=== PATIENT | male | born 1945 | race Caucasian/White ===

== ENCOUNTER 2020-07-10 07:09 | Outpatient (CLI) | payer MEDICARE ==
[~2020-07-10 07:09] MED LIST: ABIR250T PO; ASCO100018 PO; CALC250T PO; CHOL200024 PO; CHOL200074 PO; CHON250C PO; DEGA80VI3 IMPLANT; DENO120V IM; ENOX30SY4 SQ; GLUC15006 PO; MEGE40TA3 PO; MULT-642 PO; MULT-658 PO; OMEP40CA42 PO; PRED5TAB PO; TRIA1TAB3 PO; [UNRECOGNIZED DRUG - CODE] IMPLANT; chondroitin PO
== END 2020-07-10 23:59 | disposition home or self-care (01) ==
LOC: ROC 07:09
PROVIDERS: ATTEND Radiology Radiation Oncology
DX: C61 Malignant neoplasm of prostate (principal); C79.51 Secondary malignant neoplasm of bone; J32.2 Chronic ethmoidal sinusitis; J32.0 Chronic maxillary sinusitis; I10 Essential (primary) hypertension; J32.1 Chronic frontal sinusitis; Z72.9 Problem related to lifestyle, unspecified; Z01.818 Encounter for other preprocedural examination
CPT/HCPCS: G0463

== ENCOUNTER 2020-09-11 08:49 | Outpatient (CLI) | payer MEDICARE | END 2020-09-11 23:59 | disposition home or self-care (01) | LOC: ROC 08:49 | PROVIDERS: ATTEND Radiology Radiation Oncology | DX: Z08 Encounter for follow-up examination after completed treatment for malignant neoplasm (principal); Z85.830 Personal history of malignant neoplasm of bone | CPT/HCPCS: G0463 ==

== ENCOUNTER → 2020-10-21 | Outpatient (CLI) | payer MEDICARE | END | disposition home or self-care (01) | LOC: CVU 06:41 | PROVIDERS: ATTEND Internal Medicine Hematology & Oncology | DX: I08.3 Combined rheumatic disorders of mitral, aortic and tricuspid valves (principal); I11.9 Hypertensive heart disease without heart failure; Z85.46 Personal history of malignant neoplasm of prostate | CPT/HCPCS: 93306 ==